=== PATIENT | female | born 1945 ===

== ENCOUNTER 2018-11-22 07:21 | Day surgery (SDC) | payer OTHER ==
[~2018-11-22 07:21] MED LIST: ASPIR-LOW81 MG PO; EVISTA60 MG PO; LOSARTAN-HCTZ1 EAC2 PO; NORVAC; PLAVIX75 MG PO; SYNTHROID88 MCG PO; ZOCOR20 MG PO; [UNRECOGNIZED DRUG - OTHER]
== END 2018-11-22 18:40 | disposition home or self-care (01) ==
LOC: CIR.AMB 07:21
DX: N95.0 Postmenopausal bleeding (principal)